=== PATIENT | male | born 1950 | race African-American/Black ===

== ENCOUNTER 2019-02-20 11:44 | Emergency (ER) | payer OTHER, MEDICAID ==
[~2019-02-20] VITALS: Ht 175.3 cm; Wt 82.0 kg
[2019-02-20] MEDS ORDERED: SODIUM CHLORIDE 0.9% 1,000 ML IV ONE (12:15)
[2019-02-20 13:03] LABS: HEMOGLOBIN. 7.4 g/dL (14.0-18.0); MEAN CORPUSCULAR VOLUME 70.6 fL (80.0-94.0); MEAN PLATELET VOLUME 7.9 fl (7.4-10.4); PLATELET 180 x1000/uL (130-400); RED BLOOD CELL COUNT 3.54 mill/uL (4.7-6.1); RED CELL DISTRIBUTION WIDTH 19.6 % (11.6-14.6)
[2019-02-20 13:08] LABS: CHLORIDE 104 mEq/L (98-107)
[2019-02-20 13:40] LABS: PLATELET ESTIMATE NORMAL
[2019-02-20 15:38] VITALS: BP 145/85
== END 2019-02-20 15:39 | disposition home or self-care (01) ==
LOC: ER 11:44
DX: R55 Syncope and collapse (principal); D50.9 Iron deficiency anemia, unspecified; I11.0 Hypertensive heart disease with heart failure; I50.9 Heart failure, unspecified; R79.89 Other specified abnormal findings of blood chemistry
CPT/HCPCS: 36415; 71045; 80053; 82962; 83880; 84484; 85025; 93005; 96360; 96361; 99284; J7030

== ENCOUNTER 2021-02-07 21:09 | Inpatient (IN) | payer OTHER, MEDICAID ==
[~2021-02-07] VITALS: Ht 175.3 cm; Wt 99.8 kg
[2021-02-07 22:14] LABS: EOSINOPHILS % 3.4 % (0.0-5.0); HEMATOCRIT. 35.2 % (42.0-52.0); HEMOGLOBIN. 10.9 g/dL (14.0-18.0); LYMPHOCYTES % 32.6 % (20.0-50.0); MEAN CORPUSCULAR VOLUME 77.6 fL (80.0-94.0); MEAN PLATELET VOLUME 8.4 fl (7.4-10.4); MONOCYTES % 11.4 % (2.0-8.0); NEUTROPHILS % 50.6 % (40.0-76.0); PLATELET 289 x1000/uL (130-400); RED BLOOD CELL COUNT 4.54 mill/uL (4.7-6.1); RED CELL DISTRIBUTION WIDTH 20.4 % (11.6-14.6)
[2021-02-07 22:19] LABS: CHLORIDE 102 mEq/L (98-107)
[2021-02-07 22:23] LABS: ETHANOL BLOOD < 10 mg/dL
[2021-02-08 00:51] LABS: CLARITY URINE CLEAR (CLEAR); COLOR URINE YELLOW (YELLOW); KETONES URINE TRACE (NEGATIVE); LEUKOCYTE ESTERASE URINE NEGATIVE (NEGATIVE); NITRITE URINE NEGATIVE (NEGATIVE); OCCULT BLOOD URINE NEGATIVE (NEGATIVE); PROTEIN URINE 1+ (NEGATIVE); SPECIFIC GRAVITY URINE 1.017 (1.005-1.030)
[2021-02-08 01:09] LABS: *AMPHETAMINES SCREEN URINE NEGATIVE (NEGATIVE); *BARBITURATES SCREEN URINE NEGATIVE (NEGATIVE); *BENZODIAZEPINES SCREEN URINE NEGATIVE (NEGATIVE); *COCAINE SCREEN URINE NEGATIVE (NEGATIVE); METHADONE URINE SCREEN NEGATIVE (NEGATIVE); OPIATES URINE SCREEN NEGATIVE (NEGATIVE)
[2021-02-08 01:10] LABS: CANNABINOID URINE SCREEN NEGATIVE (NEGATIVE); PHENCYCLIDINE URINE SCREEN NEGATIVE (NEGATIVE)
[2021-02-08] MEDS ORDERED: FOLI-43 MT (09:55)
[2021-02-08] MEDS ORDERED: TRAZ-251 MT (09:55)
[2021-02-08] MEDS ORDERED: FERR325T6 MT (09:55)
[2021-02-08] MEDS ORDERED: MELO-106 MT (09:55)
[2021-02-08] MEDS ORDERED: NIFE-33 MT (09:55)
[2021-02-08 10:05] VITALS: BP 145/81
[2021-02-08] MEDS ORDERED: LORAZEPAM 2MG/ML CPJ IV PRN (11:15)
[2021-02-08] MEDS ORDERED: ONDANSETRON HCL 4MG/2ML INJ IV PRN (11:15)
[2021-02-08] MEDS ORDERED: ACETAMINOPHEN 325MG TABLET PO PRN (11:15)
[2021-02-08] MEDS ORDERED: CLONIDINE 0.1MG TABLET PO PRN (11:15)
[2021-02-08 12:00] VITALS: BP 113/69
[2021-02-08] MEDS: FOLIC ACID 1MG TABLET PO SCH (12:21)
[2021-02-08] MEDS: NIFEDIPINE XL 30MG TAB PO SCH (12:21)
[2021-02-08] MEDS: ENOXAPARIN 40MG/0.4ML SYR SUBCUT SCH (12:22)
[2021-02-08 16:00] VITALS: BP 133/72
[2021-02-08 20:00] VITALS: BP 148/84
[2021-02-08] MEDS: TRAZODONE HCL 50MG TABLET PO SCH (20:01)
[2021-02-09] VITALS (7 sets, daily range): BP systolic 129–156; BP diastolic 68–96
[2021-02-09 07:24] LABS: HEMATOCRIT. 30.6 % (42.0-52.0); HEMOGLOBIN. 9.5 g/dL (14.0-18.0); MEAN CORPUSCULAR HEMOGLOBIN 24.1 pg (28.0-32.0); MEAN CORPUSCULAR VOLUME 77.6 fL (80.0-94.0); MEAN PLATELET VOLUME 8.4 fl (7.4-10.4); PLATELET 244 x1000/uL (130-400); RED BLOOD CELL COUNT 3.94 mill/uL (4.7-6.1); RED CELL DISTRIBUTION WIDTH 20.6 % (11.6-14.6)
[2021-02-09 07:42] LABS: CHLORIDE 105 mEq/L (98-107)
[2021-02-09] MEDS: FOLIC ACID 1MG TABLET PO SCH (09:06)
[2021-02-09] MEDS: NIFEDIPINE XL 30MG TAB PO SCH (09:06)
[2021-02-09] MEDS: CLOPIDOGREL 75MG TABLET PO SCH (13:23)
[2021-02-09] MEDS: ENOXAPARIN 40MG/0.4ML SYR SUBCUT SCH (13:23)
[2021-02-09 16:11] LABS: PLATELET ESTIMATE NORMAL
[2021-02-09 19:59] LABS: VITAMIN B12 SERUM 514 pg/mL (211-911)
[2021-02-09] MEDS: TRAZODONE HCL 50MG TABLET PO SCH (20:10)
[2021-02-09] MEDS ORDERED: ATORVASTATIN CALCIUM 40MG TABLET PO SCH (21:00)
[2021-02-10 04:00] VITALS: BP 108/78
[2021-02-10 08:00] VITALS: BP 151/81
[2021-02-10] MEDS: NIFEDIPINE XL 30MG TAB PO SCH (08:40)
[2021-02-10] MEDS: FOLIC ACID 1MG TABLET PO SCH (08:40)
[2021-02-10] MEDS: CLOPIDOGREL 75MG TABLET PO SCH (08:40)
[2021-02-10] MEDS ORDERED: IOHEXOL-350 100 ML BOTTLE ONE (09:36)
[2021-02-10 11:42] VITALS: BP 142/80
[2021-02-10 12:00] VITALS: BP 142/80
[2021-02-10] MEDS: ENOXAPARIN 40MG/0.4ML SYR SUBCUT SCH (12:59)
== END 2021-02-10 13:55 | disposition home or self-care (01) | DRG 66 ==
LOC: ER 21:09 → MICUSO 02-08 00:22 → 7WST 02-08 09:16 → 7EST 02-09 11:44
PROVIDERS: ADMIT Hospitalist; ATTEND Hospitalist
PROC: 4A10X4Z Monitoring of Central Nervous Electrical Activity, External Approach (ICD-10-PCS; principal; 2021-02-10)
DX: I63.81 Other cerebral infarction due to occlusion or stenosis of small artery (principal); G30.9 Alzheimer's disease, unspecified; E11.9 Type 2 diabetes mellitus without complications; F02.80 Dementia in other diseases classified elsewhere, unspecified severity, without behavioral disturbance, psychotic disturbance, mood disturbance, and anxiety; F17.200 Nicotine dependence, unspecified, uncomplicated; I10 Essential (primary) hypertension; Z90.49 Acquired absence of other specified parts of digestive tract; Z79.899 Other long term (current) drug therapy
CPT/HCPCS: 36415; 70496; 70498; 70551; 80053; 80061; 80305; 80320; 81003; 82140; 82607; 84443; 84484; 85025; 93005; 93970; 99285; J1650; J2060; J7040; Q9967; G0480